=== PATIENT | male | born 1950 | race Caucasian/White ===

== ENCOUNTER → 2017-06-24 | Outpatient (CLI) | payer MEDICARE | LOC: LABPAT 16:29 | PROVIDERS: ATTEND Orthopaedic Surgery | DX: Z01.812 Encounter for preprocedural laboratory examination (principal); M16.11 Unilateral primary osteoarthritis, right hip | CPT/HCPCS: 87070 ==

== ENCOUNTER 2017-06-29 07:42 | Inpatient (IN) | payer MEDICARE ==
[2017-06-22 14:48] VITALS: BMI 34.0
--- NOTE | 2017-06-28 09:13 | HP ---
HISTORY AND PHYSICAL CHIEF COMPLAINT: Right hip pain. 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 He notes he walks with a limp. He is having groin and thigh pain. He has tried medications with only partial temporary relief. PAST MEDICAL HISTORY: Significant for arthritis, depression, hypercholesterolemia, and hypertension. PAST SURGICAL HISTORY: Significant for previous knee surgery. CURRENT MEDICATIONS: 1. Effexor. 2. Lopressor. 3. Zoloft. 4. Ativan. ALLERGIES: He denies drug allergies. FAMILY HISTORY: Significant for cancer and heart disease. SOCIAL HISTORY: Negative for current tobacco or alcohol use. REVIEW OF SYSTEMS: Sixteen-point review of systems otherwise reviewed and is noncontributory. PHYSICAL EXAMINATION: On examination, the patient is approximately 5 feet 10 inches, 230 pounds of endomorphic habitus. HEENT exam is nonfocal. Neck is supple. Passive motion of his right hip, flexion 80 degrees, external rotation with the hip flexed 50 degrees, internal rotation 0 degrees with pain. He has full extension. Clinically, he has 1 cm shortening of the right lower extremity compared to left. His distal neurovascular exam appears intact in the right lower extremity. X-rays to include AP and lateral views of the right hip obtained in the office show severe osteoarthrosis with [id number] changes. IMPRESSION: 1. Right hip severe osteoarthrosis. 2. Increased body mass index. RECOMMENDATIONS: I talked to the patient at length regarding his condition and treatment options. At this point, he is quite symptomatic because of pain related to his osteoarthrosis. At this point, he opts to proceed with right total hip arthroplasty. Risks and benefits were discussed at length in layman's terms. We will institute DVT prophylaxis postoperatively. MMODL / IJN: [id number] /
[~2017-06-29 07:42] MED LIST: ACETAMINOPHEN TAB 500 MG TAB PO ONE; DEXAMETHASONE SOD PHOSPHATE 10 MG/ML 1 ML VIAL IV ONE; MELOXICAM 7.5 MG TAB PO ONE; MIDAZOLAM 2 MG/2 ML VIAL IV PRN; ONDANSETRON 4 MG/2 ML VIAL IVP ONE; TRANEXAMIC ACID 1,000 MG in SODIUM CHLORIDE 0.9% 50 ML IVPB ONE; VANCOMYCIN 1,500 MG in SODIUM CHLORIDE 0.9% 250 ML IVPB ONE; ceFAZolin IN SWFI 2 GM/20 ML SYRINGE IVP ONE; fentaNYL (PF) 50 MCG/ML 2 ML AMP IV PRN
[2017-06-29] MEDS: LACTATED RINGERS 1,000 ML IV SCH ×2 (09:31→16:03)
[2017-06-29] MEDS ORDERED: SODIUM CHLORIDE 0.9% 100 ML BAG ONE (11:52)
[2017-06-29] MEDS ORDERED: PHENYLEPHRINE-0.9% NACL SYG 1 MG/10 ML SYRINGE ONE (11:52)
[2017-06-29] MEDS ORDERED: PROPOFOL 10 MG/ML 20 ML VIAL IV ONE (11:52)
[2017-06-29] MEDS ORDERED: diphenhydrAMINE 50 MG/ML 1 ML VIAL ONE (11:52)
[2017-06-29] MEDS ORDERED: fentaNYL (PF) 50 MCG/ML 2 ML AMP ONE (11:52)
[2017-06-29] MEDS ORDERED: LACTATED RINGERS 1,000 ML BAG IV ONE (11:52)
[2017-06-29] MEDS ORDERED: TRANEXAMIC ACID 1,000 MG/10 ML VIAL ONE (11:52)
[2017-06-29] MEDS ORDERED: MIDAZOLAM 2 MG/2 ML VIAL ONE (11:52)
[2017-06-29] MEDS ORDERED: HEPARIN SODIUM,PORCINE 10,000 UNIT/ML 1 ML VIAL ONE (11:52)
[2017-06-29] MEDS ORDERED: ceFAZolin 3,000 MG in SODIUM CHLORIDE 0.9% IRRIGATIO 3,000 ML IRRIGATION ONE (12:38)
[2017-06-29] MEDS ORDERED: LACTATED RINGERS 1,000 ML IV ONE (13:00)
[2017-06-29] MEDS ORDERED: MAGNESIUM HYDROXIDE 2,400 MG/10 ML CUP PO PRN (13:45)
[2017-06-29] MEDS ORDERED: HYDROmorphone 0.5 MG/0.5 ML SYRINGE IVP PRN ×2 (13:45)
[2017-06-29] MEDS ORDERED: NALOXONE 0.4 MG/ML 1 ML VIAL IV PRN (13:45)
[2017-06-29] MEDS ORDERED: ONDANSETRON 4 MG/2 ML VIAL IVP PRN (13:45)
[2017-06-29] MEDS ORDERED: ACETAMINOPHEN TAB 325 MG TAB PO PRN (13:45)
--- NOTE | 2017-06-29 14:13 | P.OP ---
Date of Procedure: 06/29/17 Preoperative Diagnosis: Severe right hip osteoarthrosis Postoperative Diagnosis: Same Procedure(s) Performed: Right total hip xvftpxenojjy-izgyj-lko-lateral approach Implants: Depuy Corail KLA size 14 collared femoral stem, 36 mm +12 coracoacromial femoral head, 58 mm acetabular shell with neutral polyethylene liner Anesthesia: spinal Surgeon: Yousuf Nolasco [employer] Cart Repairer #1: Wilfrid Esteban Estimated Blood Loss (ml): 180 Pathology: other (Femoral head) Condition: stable Disposition: PACU Indications for Procedure: The patient is a 67-year-old male who presents with progressive right hip pain secondary to osteoarthrosis despite conservative measures. A discussion of the risks and benefits of operative intervention versus continued conservative measures was made with patient. He opted to proceed with surgery. Operative risks to include infection, neurovascular injury, development of blood clots, possible fracture, possible ligamentous gaps he, possible instability and need for subsequent procedures was discussed. Informed consent was obtained. Operative Findings: As below Description of Procedure: The patient was brought to the operating room, and after induction of spinal anesthesia was placed in a lateral decubitus position. The bony prominences were appropriately padded. The right lower extremity was prepped and draped in normal fashion. Preoperative templating previously was performed estimate component positioning incises. A 12 cm incision was then made centered over the greater trochanter extending superiorly to level ASIS and distally in line with the femoral shaft. The skin and subcu tissues were divided sharply. Electrocautery was used for hemostasis. The fascia margareth and gluteus carter fascia was split in line with the skin incision. The muscle fibers were bluntly dissected ethmoid. A self-retaining retractor was placed. The anterior and posterior margins of the gluteus medius muscles identified in the anterior two thirds detached from the greater trochanter with electrocautery. The gluteus minimus tendon was identified and detached in a similar fashion. A wide capsulotomy was performed. The hip was gently dislocated. The femoral neck cut was then made approximately 1 1/2 cm above the level of the lesser trochanter at a 45 the shaft with a sagittal saw. The femoralead was then extracted. Attention was then paid towards preparing the acetabulum. Retractors were placed anterior and posteriorly. The remaining labral and capsular tissue was debrided sharply clearly defining the acetabular margins. I began reaming with a 53 millimeter reamer taking care to initially medialize, then reaming at 45 of abduction and 20 of anteversion. Sequential reaming was performed up to 57 mm. This was down to a bleeding bony surface. A 58 mm trial acetabular shell was inserted in the same orientation and was fully seated. There was good rim fit and stability. The trial component was removed. The final 58 millimeter [place] acetabular component was inserted in the same 45 abduction and 20 of anteversion and was fully seated. Again there was good rim fit and stability. Pulsatile lavage was utilized. A neutral polyethylene liner was gently impacted. Care was taken to avoid any soft tissue interposition. Attention was then paid towards preparing the proximal femur. A box chisel was used to open the metaphyseal region. A canal finder was used to find the femoral canal. Sequential broaching broaching was performed with the leg perpendicular to the floor in 15 of anteversion. I broached up to a size 14 broach. A calcar mill was used to fashion the medial calcar. A KLA neck along with a 36 mm +12 trial head was placed. The hip was gently relocated. It was taken through range of motion and felt to be stable in flexion and extension with internal and external rotation. I felt there was adequate christian of soft tissue tension. The hip was gently dislocated. The trial components were then removed. Pulsatile lavage was again utilized. The final size 14 KLA press fit femoral stem was inserted with the leg perpendicular to the floor in 15 of anteversion. This was fully seated and had good rotation stability. The 36 mm +12 cobalt chrome femoral head was gently impacted. Hip was gently reduced. Again it was taken through range of motion and felt to be stable in flexion and extension with internal and external rotation. Again I felt there was adequate christian of soft tissue tension. Pulsatile lavage was again utilized. The gluteus minimus and medius tendons reattached the greater trochanter with #2 Ethibond suture. Minimal drainage was noted this point therefore a drain was not placed. The fascia margareth and gluteus carter fascia was closed with #2 Ethibond suture. The subcutaneous tissues were reapproximated interrupted 2-0 Vicryl sutures. The skin was reapproximated with 3-0 subcuticular strata fix suture. Skin tape and adhesive was applied. A sterile dressing was applied. The patient was then awoken from sedation and transferred to recovery room in good condition. Blood loss was estimated at 180 mL. He received approximately 66 cc of Cell Saver. He also received 2 doses of IV TXA. Sponge and needle counts were correct in the case. No complications were incurred.
--- NOTE | 2017-06-29 14:25 | XR ---
EXAMINATION TYPE: XR Hip Limited RT DATE OF EXAM: 06/29/2017 COMPARISON: NONE HISTORY: Postop right hip placement TECHNIQUE: Single AP FINDINGS: Postsurgical changes are within the soft tissues. A right hip prosthesis and acetabular com ponent are present. No acute fractures are evident. IMPRESSION: 1. No acute fractures post right hip prosthesis placement.
[2017-06-29] MEDS: traMADol 50 MG TAB PO SCH ×2 (17:47→21:31)
[2017-06-29] MEDS ORDERED: LORazepam 1 MG TAB PO PRN (19:44)
[2017-06-29] MEDS ORDERED: VANCOMYCIN 1,500 MG in SODIUM CHLORIDE 0.9% 250 ML IVPB ONE (21:00)
[2017-06-29] MEDS: SENNOSIDES-DOCUSATE SODIUM 1 EACH TAB PO SCH (21:25)
[2017-06-29] MEDS: OXYMETAZOLINE 0.05% NASL SPRAY 1 SPRAY BOTTLE NASAL SCH (21:30)
[2017-06-29] MEDS: METOPROLOL TARTRATE 50 MG TAB PO SCH (21:30)
[2017-06-30] MEDS: HYDROcodone/APAP 7.5-325MG 1 EACH TAB PO PRN ×4 (05:32→23:32)
[2017-06-30 07:06] LABS: Basophils % (A) 0 %; Eosinophils % (A) 0 %; HGB 15.4 gm/dL (13.0-17.5); Lymphocytes % (A) 20 %; MCHC 34.2 g/dL (31.0-37.0); MCV 96.4 fL (80.0-100.0); Mean Platelet Volume 7.1; Monocytes # (A) 0.7 k/uL (0-1.0); Monocytes % (A) 7 %; Neutrophils # (A) 7.2 k/uL (1.3-7.7); Neutrophils % (A) 72 %; Platelet Count 170 k/uL (150-450); RBC 4.67 m/uL (4.30-5.90); RDW 12.7 % (11.5-15.5); WBC 10.1 k/uL (3.8-10.6)
[2017-06-30] MEDS: VENLAFAXINE HCL ER 75 MG CAP PO SCH (08:10)
[2017-06-30] MEDS: RIVAROXABAN 10 MG TAB PO SCH (08:10)
[2017-06-30] MEDS: SERTRALINE 100 MG TAB PO SCH (08:10)
[2017-06-30] MEDS: traMADol 50 MG TAB PO SCH ×4 (08:12→21:11)
[2017-06-30] MEDS ORDERED: SERTRALINE 50 MG TAB PO SCH (09:00)
[2017-06-30] MEDS ORDERED: METOPROLOL TARTRATE 50 MG TAB PO SCH (09:00)
[2017-06-30] MEDS: OXYMETAZOLINE 0.05% NASL SPRAY 1 SPRAY BOTTLE NASAL SCH ×3 (11:48→22:15)
--- NOTE | 2017-06-30 12:01 | P.PN ---
Subjective Progress Note Date: 06/30/17 Principal diagnosis: Status post right total arthroplasty Patient seen today resting in his hospital chair, he appears comfortable. He is having no acute pain at this time. He is ambulating with therapy. He denies any headaches, lightheadedness, chest pain shortness breath Objective - Vital Signs Vital signs: Vital Signs Temp 98.8 F 06/30/17 08:12 Pulse 94 06/30/17 08:12 Resp 16 06/30/17 01:19 BP 158/94 06/30/17 08:12 Pulse Ox 92 L 06/30/17 01:19 Intake & Output 06/29/17 06/30/17 06/30/17 18:59 06:59 18:59 Intake Total 1901 1100 Output Total 630 1025 300 Balance 1271 75 -300 Intake: IV 1901 Intake, IV Titration 100 Amount Lactated Ringers 1,000 ml 100 @ 50 mls/hr IV .Q20H CORI Rx#:[id number] Oral 1000 Output: Urine 450 1025 300 Uretheral (Tineo) 300 Estimated Blood Loss 180 Other: Voiding Method Indwelling Catheter Indwelling Catheter - Exam Right lower extremity: Incision is clean, dry, and intact. The prineo tape is in good condition. There is minimal soft tissue swelling and ecchymosis surrounding the medial and lateral aspects of the incision. Calf is soft, no tenderness with palpation. Plantar flexion, dorsiflexion, EHL, FHL are intact. Sensory exam to light touch throughout the extremity is intact, dorsal pedis pulses 2+. - Labs CBC & Chem 7: 06/30/17 06:30 Assessment and Plan Plan: Assessment: Postoperative day 1 status post right total hip arthroplasty Plan: Pain control, continue use of oral medication Continue her physical therapy GI and DVT prophylaxis, continue Xarelto 10 mg inpatient stay, we'll discharge home likely Eliquis 2.5 mg twice a day for 30 days Medical recommendations Hip precautions were discussed Encourage incentive spirometer Discharge planning: Patient likely be discharged home tomorrow Time with Patient: Less than 30
[2017-06-30] MEDS: METOPROLOL TARTRATE 50 MG TAB PO SCH (21:11)
[2017-06-30] MEDS: SENNOSIDES-DOCUSATE SODIUM 1 EACH TAB PO SCH (21:11)
--- NOTE | 2017-06-30 23:53 | P.CONS ---
History of Present Illness - Reason for Consult Consult date: 06/30/17 - Chief Complaint Status post hip arthroplasty. - History of Present Illness This is a history and consultation note on a 67-year-old white male essentially admitted for hip arthroplasty. The patient is seen postop day #1 doing quite well. He has an underlying history of hypertension andAlcoholism element. He states no previous history of delirium tremens. He is somewhat diaphoretic this morning but stable without tremor. Review of Systems Constitutional: Denies chills, Denies fever Eyes: denies blurred vision, denies pain Ears, nose, mouth and throat: Denies headache, Denies sore throat Respiratory: Denies cough Gastrointestinal: Denies abdominal pain, Denies diarrhea, Denies nausea, Denies vomiting Musculoskeletal: Denies myalgias Past Medical History Past Medical History: GERD/Reflux, Hypertension, Osteoarthritis (OA) Additional Past Medical History / Comment(s): carpal tunnel syndrome aman arms, arthritis knees and hands History of Any Multi-Drug Resistant Organisms: None Reported Additional Past Surgical History / Comment(s): pilonidal cyst, "varicose veins in testicles removed", cartilage in left knee repaired, polyp in nose removed Past Anesthesia/Blood Transfusion Reactions: Previous Problems w/ Anesthesia Additional Past Anesthesia/Blood Transfusion Reaction / Comm: "2 times coming out of anesthesia became violent". "woke up during during varicose vein surgery" Past Psychological History: Anxiety, Depression Smoking Status: Former smoker Past Alcohol Use History: Daily Additional Past Alcohol Use History / Comment(s): smoked 20 years quit 1 ppd quit 1981. 1 fifth/day Past Drug Use History: Marijuana Additional Drug Use History / Comment(s): 1/2 ounce per month. - Past Family History Mother Family Medical History: Cancer Additional Family Medical History / Comment(s): lung,pancreatic cancer Medications and Allergies Home Medications Medication Instructions Recorded Confirmed Type LORazepam [Ativan] 1 mg PO BID 06/22/17 06/29/17 History Metoprolol Tartrate [Lopressor] 50 mg PO HS 06/22/17 06/29/17 History Sertraline HCl [Zoloft] 100 mg PO DAILY 06/22/17 06/29/17 History Oxymetazoline 0.05% Nasl [place] 2 spray EA NOSTRIL BID PRN 06/28/17 06/29/17 History [Afrin 0.05% Nasal [place]] Venlafaxine HCl ER [Effexor Xr] 75 mg PO DAILY 06/28/17 06/29/17 History Allergies Allergy/AdvReac Type Severity Reaction Status Date / Time No Known Allergies Allergy Verified 06/29/17 15:51 Physical Exam Vitals: Vital Signs Temp Pulse Pulse Resp BP Pulse Ox 06/30/17 20:00 98.2 F 81 18 134/94 95 06/30/17 15:21 98 F 79 16 151/89 98 06/30/17 08:12 98.8 F 94 158/94 06/30/17 01:19 98.1 F 68 16 136/87 92 L Intake and Output 06/30/17 06/30/17 07/01/17 14:59 22:59 06:59 Intake Total 750 Output Total 300 375 Balance -300 375 Intake: Oral 750 Output: Urine 300 375 Uretheral (Tineo) 300 Other: Voiding Method Indwelling Catheter Toilet Urinal # Voids 1 - Constitutional General appearance: no acute distress - EENT Eyes: EOMI - Neck Neck: no lymphadenopathy - Respiratory Respiratory: bilateral: CTA - Cardiovascular Rhythm: regular Heart sounds: normal: S1, S2 Abnormal Heart Sounds: no S3 Gallop - Gastrointestinal General gastrointestinal: soft, no tenderness - Integumentary Integumentary: no rash - Psychiatric Psychiatric: A&O x's 3, appropriate affect Results CBC & Chem 7: 06/30/17 06:30 Assessment and Plan (1) Hypertension Current Visit: Yes Status: Acute Code(s): I10 - ESSENTIAL (PRIMARY) HYPERTENSION SNOMED Code(s): 54730635 (2) Anxiety Current Visit: Yes Status: Acute Code(s): F41.9 - ANXIETY DISORDER, UNSPECIFIED SNOMED Code(s): 11709964 (3) Depression Current Visit: Yes Status: Acute Code(s): F32.9 - MAJOR DEPRESSIVE DISORDER , SINGLE EPISODE, UNSPECIFIED SNOMED Code(s): 21871630 (4) Alcoholism Current Visit: Yes Status: Acute Code(s): F10.20 - ALCOHOL DEPENDENCE, UNCOMPLICATED SNOMED Code(s): 6987707 (5) Osteoarthritis of right hip Current Visit: Yes Status: Acute Code(s): M16.11 - UNILATERAL PRIMARY OSTEOARTHRITIS, RIGHT HIP SNOMED Code(s): 469425666191485 Plan: Reconcile home medications. Watch for any type of alcohol related issue. The patient seems to be stable at this time. Check CBC and CMP in the a.m. Start rehabilitation. Reconcile medications. We will continue follow closely during this hospitalization. I do appreciate the consultation. Time with Patient: Less than 30
[2017-07-01] MEDS: HYDROcodone/APAP 7.5-325MG 1 EACH TAB PO PRN (05:48)
[2017-07-01] MEDS: SERTRALINE 100 MG TAB PO SCH (08:04)
[2017-07-01] MEDS: RIVAROXABAN 10 MG TAB PO SCH (08:04)
[2017-07-01] MEDS: traMADol 50 MG TAB PO SCH ×2 (08:04→14:04)
[2017-07-01] MEDS: VENLAFAXINE HCL ER 75 MG CAP PO SCH (08:04)
[2017-07-01] MEDS: OXYMETAZOLINE 0.05% NASL SPRAY 1 SPRAY BOTTLE NASAL SCH (08:05)
[2017-07-01] MEDS ORDERED: HYDROmorphone 2 MG TAB PO PRN ×2 (11:10→11:12)
--- NOTE | 2017-07-01 12:01 | P.PN ---
Subjective Progress Note Date: 07/01/17 Principal diagnosis: Status post right total arthroplasty Patient seen today resting in his hospital chair, he appears comfortable. He is having no acute pain at this time. He is ambulating with therapy. He denies any headaches, lightheadedness, chest pain shortness breath Objective - Vital Signs Vital signs: Vital Signs Temp 98.9 F 07/01/17 07:00 Pulse 81 07/01/17 07:00 Resp 14 07/01/17 07:00 BP 147/93 07/01/17 07:00 Pulse Ox 95 07/01/17 07:00 Intake & Output 06/30/17 07/01/17 07/01/17 18:59 06:59 18:59 Intake Total 250 500 Output Total 675 Balance -425 500 Intake: Oral 250 500 Output: Urine 675 Uretheral (Tineo) 300 Other: Voiding Method Bedpan Toilet Urinal # Voids 1 2 - Exam Right lower extremity: Incision is clean, dry, and intact. The prineo tape is in good condition. There is minimal soft tissue swelling and ecchymosis surrounding the medial and lateral aspects of the incision. Calf is soft, no tenderness with palpation. Plantar flexion, dorsiflexion, EHL, FHL are intact. Sensory exam to light touch throughout the extremity is intact, dorsal pedis pulses 2+. - Labs CBC & Chem 7: 06/30/17 06:30 Assessment and Plan Plan: Assessment: Postoperative day #2 status post right total hip arthroplasty Plan: Pain control, continue use of oral medication Continue her physical therapy GI and DVT prophylaxis, continue Xarelto 10 mg inpatient stay, we'll discharge home likely Eliquis 2.5 mg twice a day for 30 days Medical recommendations Hip precautions were discussed Encourage incentive spirometer Discharge planning: Patient will be discharged home today Time with Patient: Less than 30
--- NOTE | 2017-07-01 12:04 | P.DS ---
Providers Date of admission: 06/29/17 07:42 Expected date of discharge: 07/01/17 Attending physician: Yousuf Nolasco Consults: 06/29/17 13:45 Consult Physician Routine Consulting Provider: Дмитрий Wolef Reason/Comments: medical management Do you want consulting provider notified?: Yes Primary care physician: Дмитрий Wolfe Hospital Course: Date of admission: 06/29/2017 Date of discharge: 07/01/2017 Admission diagnosis: Status post right total hip arthroplasty Discharge diagnosis: Same Attending physician: Dr. Nolasco Surgical procedures: Right total hip arthroplasty Brief history: Patient is a 67-year-old male with a history of progressive primary right hip osteoarthritis. At this point patient has failed conservative treatment measures and has opted to proceed with a elective right total hip arthroplasty. Hospital course: Details of patient's surgery can be found in operative report. Patient tolerated the procedure well and was subsequently transported to orthopedic floor. Patient's orthopeidc and medical care was provided daily. Patient had daily laboratory tests performed for evaluation of overall blood counts. Patient had daily physical therapy to include strengthening range of motion as well as education with walker ambulation. Patient was treated with Xarelto for their postoperative DVT prophylaxis during their inpatient stay. Patient was noted to have a relatively uneventful postoperative course. Patient reported satisfactory pain control with oral pain medications by postoperative day 0. Patient showed satisfactory progress with physical therapy. Patient moved steadily through the program and had no difficulty meeting the goals by postoperative day 2. Given patient's otherwise satisfactory course and having met physical therapy goals, plan is to discharge patient home on postoperative day 2. Discharge condition/disposition: Patient will be discharged home in stable condition. Discharge medications: Instructions are given on resumption of patient's normal daily medications per primary care recommendation, in addition patient will be prescribed [place] 5 mg/325 mg, Colace 100 mg, Eliquis 2.5mg. Discharge instructions: 1. Wound care and infection precautions, keep incision dry and covered while showering, no lotions, creams, moisturizers. No soaking, tubs, pools, hottubs. Do not scrub over the incision. 2. Weight-bear as tolerated] with walker / cane until follow-up. 3. Ice and elevate when necessary. Do not exceed 20 minutes per hour with ice pack. 4. Utilize compression sleeve until seen at first follow up appointment. 5. Visiting nursing care. 6. Home physical therapy. 7. Pain meds and anticoagulants per prescription. 8. Pain medication has potential to cause constipation. Increase oral fluid and fiber intake. Contact primary care provider if you have not had a bowel movement within 48 hours after discharge 9. No anti-inflammatory medication until discussed at first post operative visit, this including Motrin, Aleve, Mobic, Diclofenac. 10. Follow up in office at 2 weeks postop with Abelardo Esteban PA-C 11. Follow up with your primary care doctor 7-10 days after discharge. 12. Contact [facility] with any questions, . Procedures: Right total hip arthroplasty Patient Condition at Discharge: Good Plan - Discharge Summary Discharge Rx Participant: Yes New Discharge Prescriptions: New Apixaban [Eliquis] 2.5 mg PO BID #60 tab Docusate [Colace] 100 mg PO DAILY #30 capsule Hydrocodone/Acetaminophen [[place] 5-325] 1 each PO Q6HR PRN #40 tab PRN Reason: Pain No Action Sertraline HCl [Zoloft] 100 mg PO DAILY Metoprolol Tartrate [Lopressor] 50 mg PO HS LORazepam [Ativan] 1 mg PO BID Oxymetazoline 0.05% Nasl [place] [Afrin 0.05% Nasal [place]] 2 spray EA NOSTRIL BID PRN PRN Reason: Nasal Congestion Venlafaxine HCl ER [Effexor Xr] 75 mg PO DAILY Discharge Medication List LORazepam [Ativan] 1 mg PO BID 06/22/17 [History] Metoprolol Tartrate [Lopressor] 50 mg PO HS 06/22/17 [History] Sertraline HCl [Zoloft] 100 mg PO DAILY 06/22/17 [History] Oxymetazoline 0.05% Nasl [place] [Afrin 0.05% Nasal [place]] 2 spray EA NOSTRIL BID PRN 06/28/17 [History] Venlafaxine HCl ER [Effexor Xr] 75 mg PO DAILY 06/28/17 [History] Apixaban [Eliquis] 2.5 mg PO BID #60 tab 07/01/17 [Rx] Docusate [Colace] 100 mg PO DAILY #30 capsule 07/01/17 [Rx] Hydrocodone/Acetaminophen [[place] 5-325] 1 each PO Q6HR PRN #40 tab 07/01/17 [Rx] Follow up Appointment(s)/Referral(s): Дмитрий Wolfe MD [Primary Care Provider] - 07/09/17 2:20 pm [facility], [NON-STAFF] - Wilfrid Esteban PAC [PHYSICIAN CHARTER REPRESENTATIVE] - 07/14/17 3:30 pm Activity/Diet/Wound Care/Special Instructions: Orthopedic Discharge Instructions: 1. Wound care and infection precautions, keep incision dry and covered while showering, no lotions, creams, moisturizers. No soaking, pools, hot tubs. Do not scrub over incision. 2. Weight-bear as tolerated with walker / cane until follow-up. 3. Ice and elevate when necessary. Do not exceed 20 minutes per hour with ice pack. 4. Utilize compression sleeve until seen at first follow up appointment. 5. Visiting nursing care. 6. Home physical therapy. 7. Pain meds and anticoagulants per prescription. 8. Pain medication has potential to cause constipation. Increase oral fluid and fiber intake. Contact primary care provider if you have not had a bowel movement within 48 hours after discharge. 9. No anti-inflammatory medication until discussed at first post operative visit, this including Motrin, Aleve, Mobic, Diclofenac. 10. Follow up in office at 2 weeks postop with Abelardo Esteban PA-C 11. Follow up with your primary care doctor 7-10 days after discharge. 12. Contact [facility] with any questions, [phone]. 13. [facility] - [phone]- will deliver to bedside before discharge. Discharge Disposition: HOME WITH HOME HEALTH SERVICES
[2017-07-01 14:41] VITALS: BP 134/93; PULSE 94; RESP 16; TEMP 98.3
== END 2017-07-01 15:27 | disposition home health service (06) | DRG 470 ==
LOC: 2ORMAIN 07:42 → 3SUR 15:22
PROVIDERS: ADMIT Orthopaedic Surgery; ATTEND Orthopaedic Surgery
PROC: 30233N0 Transfusion of Autologous Red Blood Cells into Peripheral Vein, Percutaneous Approach (ICD-10-PCS; 2017-06-29)
PROC: 0SR902A Replacement of Right Hip Joint with Metal on Polyethylene Synthetic Substitute, Uncemented, Open Approach (ICD-10-PCS; principal; 2017-06-29 11:00)
DX: M16.11 Unilateral primary osteoarthritis, right hip (principal); E78.00 Pure hypercholesterolemia, unspecified; I10 Essential (primary) hypertension; M17.0 Bilateral primary osteoarthritis of knee; M19.042 Primary osteoarthritis, left hand; M19.041 Primary osteoarthritis, right hand; K21.9 Gastro-esophageal reflux disease without esophagitis; F41.9 Anxiety disorder, unspecified; F10.20 Alcohol dependence, uncomplicated; F32.9 Major depressive disorder, single episode, unspecified; Z87.891 Personal history of nicotine dependence; Z79.899 Other long term (current) drug therapy; Z80.0 Family history of malignant neoplasm of digestive organs
CPT/HCPCS: 36415; 73501; 85025; 86850; 86891; 86900; 86901; 88300

== ENCOUNTER 2018-11-07 21:51 | Emergency (ER) | payer MEDICARE ==
--- NOTE | 2018-11-08 03:56 | ED ---
General Adult HPI - General Source: patient, RN notes reviewed, old records reviewed Mode of arrival: ambulatory Limitations: no limitations <Yousuf Butcher - Last Filed: 11/08/18 03:57> <Gerry Oliveros - Last Filed: 11/08/18 04:39> - General Chief complaint: Psychiatric Symptoms Stated complaint: Mental HEalth Time Seen by Provider: 11/07/18 22:19 - History of Present Illness Initial comments: 68-year-old male patient presents to ED by [facility]. Reportedly patient was making threatening statements towards himself and towards his after a verbal altercation regards to possibly using a hand gun. At time of evaluation patient denies to answer any questions. Patient refused a physical exam. (Yousuf Butcher) - Related Data Home Medications Medication Instructions Recorded Confirmed LORazepam [Ativan] 1 mg PO BID 06/22/17 06/29/17 Metoprolol Tartrate [Lopressor] 50 mg PO HS 06/22/17 06/29/17 Sertraline HCl [Zoloft] 100 mg PO DAILY 06/22/17 06/29/17 Oxymetazoline 0.05% Nasl [place] 2 spray EA NOSTRIL BID PRN 06/28/17 06/29/17 [Afrin 0.05% Nasal [place]] Venlafaxine HCl ER [Effexor Xr] 75 mg PO DAILY 06/28/17 06/29/17 Previous Rx's Medication Instructions Recorded Apixaban [Eliquis] 2.5 mg PO BID #60 tab 07/01/17 Docusate [Colace] 100 mg PO DAILY #30 capsule 07/01/17 Hydrocodone/Acetaminophen [[place] 1 each PO Q6HR PRN #40 tab 07/01/17 5-325] Allergies Allergy/AdvReac Type Severity Reaction Status Date / Time No Known Allergies Allergy Verified 11/07/18 22:14 Review of Systems ROS Other: All systems not noted in ROS Statement are negative. <Yousuf Butcher - Last Filed: 11/08/18 03:57> ROS Other: All systems not noted in ROS Statement are negative. <Gerry Oliveros - Last Filed: 11/08/18 04:39> ROS Statement: Those systems with pertinent positive or pertinent negative responses have been documented in the HPI. Past Medical History Past Medical History: Coronary Artery Disease (CAD), GERD/Reflux, Hypertension, Osteoarthritis (OA) Additional Past Medical History / Comment(s): carpal tunnel syndrome aman arms, arthritis knees and hands History of Any Multi-Drug Resistant Organisms: None Reported Past Surgical History: Coronary Bypass/CABG, Joint Replacement, Orthopedic Surgery Additional Past Surgical History / Comment(s): pilonidal cyst, "varicose veins in testicles removed", cartilage in left knee repaired, polyp in nose removed Past Anesthesia/Blood Transfusion Reactions: Previous Problems w/ Anesthesia Additional Past Anesthesia/Blood Transfusion Reaction / Comment(s): "2 times coming out of anesthesia became violent". "woke up during during varicose vein surgery" Past Psychological History: Anxiety, Depression Smoking Status: Current some day smoker Past Alcohol Use History: Daily Past Drug Use History: Marijuana - Past Family History Mother Family Medical History: Cancer Additional Family Medical History / Comment(s): lung,pancreatic cancer <Yousuf Butcher - Last Filed: 11/08/18 03:57> General Exam Limitations: no limitations <Yousuf Butcher - Last Filed: 11/08/18 03:57> Course Vital Signs 11/07/18 11/08/18 11/08/18 21:57 00:43 04:04 Temperature 97.9 F 98.5 F Pulse Rate 95 79 Respiratory 18 16 17 Rate Blood Pressure 146/99 145/95 O2 Sat by Pulse 99 96 Oximetry Medical Decision Making <Yousuf Butcher - Last Filed: 11/08/18 03:57> - Medical Decision Making 68-year-old male patient is to ED after reportedly making threatening statements or using a hand and for violence towards himself from possible towards his . Patient is answer any questions during my history taking. Patient did deny any physical complaints at this time. Patient refused to allow me to perform a physical exam. Patient also declined any laboratory investigations to be drawn. Patient was evaluated by EPS. Pending recommendation. (Yousuf Butcher) Disposition <Yousuf Butcher - Last Filed: 11/08/18 03:57> Is patient prescribed a controlled substance at d/c from ED?: No <Gerry Oliveros - Last Filed: 11/08/18 04:39> Clinical Impression: Mood disorder Disposition: HOME SELF-CARE Condition: Good Instructions (If sedation given, give patient instructions): Mood Disorders (ED) Referrals: Jann Betancur MD [Primary Care Provider] - 1-2 days
[2018-11-08] MEDS ORDERED: LORazepam 2 MG/ML INJ IV PRN ×3 (03:57)
[2018-11-08 04:04] VITALS: RESP 17
[2018-11-08 04:46] VITALS: BP 105/75; PULSE 86; TEMP 97.5
== END 2018-11-08 04:51 | disposition home or self-care (01) ==
LOC: EC 21:51
DX: F39 Unspecified mood [affective] disorder (principal); I25.10 Atherosclerotic heart disease of native coronary artery without angina pectoris; I10 Essential (primary) hypertension; F41.9 Anxiety disorder, unspecified; F32.9 Major depressive disorder, single episode, unspecified; F17.200 Nicotine dependence, unspecified, uncomplicated; Z79.899 Other long term (current) drug therapy; Z95.1 Presence of aortocoronary bypass graft
CPT/HCPCS: 82075; 99285

== ENCOUNTER → 2018-11-25 | Outpatient (CLI) | payer MEDICARE ==
--- NOTE | 2018-11-25 09:57 | XR ---
EXAMINATION TYPE: XR chest 2V DATE OF EXAM: 11/25/2018 COMPARISON: NONE HISTORY: MRI clearance. History of open heart surgery. TECHNIQUE: Frontal and lateral views of the chest are obtained. FINDINGS: Overlying sternal wires and mediastinal clips are seen. There is metallic cardiac closure d evice along the superior posterior aspect of the heart. This should be correlated for MRI safety prio r to attempted scanning. No epicardial pacer wires are present. There is chronic parenchymal change without suspicious focal air space opacity, pleural effusion, or pneumothorax seen. The cardiac silh ouette size is upper limits of normal. Multilevel spurring in the thoracic spine is present. IMPRESSION: As above.
== END ==
LOC: RADXRMAIN 09:34
PROVIDERS: ATTEND Orthopaedic Surgery Orthopaedic Surgery of the Spine
DX: M46.04 Spinal enthesopathy, thoracic region (principal)
CPT/HCPCS: 71046

== ENCOUNTER → 2019-01-02 | Outpatient (CLI) | payer MEDICARE ==
--- NOTE | 2019-01-02 16:21 | NM ---
EXAMINATION TYPE: NM bone scan whole body DATE OF EXAM: 01/02/2019 COMPARISON: NONE HISTORY: Neck pain cervicalgia Delayed whole-body scanning was performed following the injection of 24.6 mCi Tc 99m MDP. Images acq uired 3 hours post injection. FINDINGS: There is increased radiotracer accumulation within the sternum and within the bilateral shoulders. In creased uptake is within the bilateral knees. There are some scattered areas of uptake within the elb ows, wrists and ankles. Within the cervical spine there is mild uptake in the lower cervical spine which could be degenerativ e in nature. Some focal radiotracer is within the mandible slightly left of midline. Correlate for periodontal dis ease. There is some uptake over the greater trochanter of the right hip. Correlate for some bursitis change s IMPRESSION: 1. Multiple degenerative changes scattered throughout appendicular skeleton at joint spaces. 2. Mild uptake within the cervical spine can be compatible some degenerative change.
== END | disposition home or self-care (01) ==
LOC: RADNMMAIN 09:50
PROVIDERS: ATTEND Physical Medicine & Rehabilitation
DX: M19.90 Unspecified osteoarthritis, unspecified site (principal)
CPT/HCPCS: 78306; A9503

== ENCOUNTER → 2022-02-02 | Outpatient (CLI) | payer MEDICARE, OTHER ==
--- NOTE | 2022-02-02 16:34 | CT ---
EXAMINATION TYPE: CT right knee - [facility] Protocol DATE OF EXAM: 02/02/2022 COMPARISON: Radiograph 08/02/2020 and 06/17/2020 HISTORY: 72-year-old male Unilateral primary osteoarthritis CT DLP: 1500 mGycm. Automated exposure control for dose reduction was used. TECHNIQUE: CT scanning for surgical planning purposes right knee with additional imaging of the pelvi s and ankles. FINDINGS: The patient is status post right hip total arthroplasty and interval left total knee ureteroplasty. There is tricompartmental degenerative change in the right knee, end-stage along the medial compartme nt with some genu varies deformity. In the pelvis, sigmoid diverticulosis is noted. Prostate gland measuring 4.5 cm wide. Moderate degene rative change left hip. Moderate knee joint effusion with a 1.1 cm loose body lateral aspect of the right suprapatellar pouch . Degenerative change at the right tibiotalar joint. IMPRESSION: 1. Imaging of the right knee for surgical planning purposes. 2. Previous right total hip arthroplasty and left total knee arthroplasty. 3. Additional moderate left hip OA and moderate to severe right ankle joint OA.
== END | disposition home or self-care (01) ==
LOC: RADCTMAIN 15:49
PROVIDERS: ATTEND Orthopaedic Surgery
DX: M17.11 Unilateral primary osteoarthritis, right knee (principal); M16.12 Unilateral primary osteoarthritis, left hip; Z96.641 Presence of right artificial hip joint; Z96.653 Presence of artificial knee joint, bilateral

== ENCOUNTER 2022-08-11 22:13 | Emergency (ER) | payer MEDICARE, OTHER ==
[2022-08-11 22:32] VITALS: BP 148/97; PULSE 75; RESP 18; TEMP 98.2
[2022-08-11] MEDS ORDERED: AMOXIC-POT CLAV 875MG STARTER PACK 2 TAB BTL PO STA (23:33)
--- NOTE | 2022-08-11 23:35 | ED ---
ENT HPI - General Chief complaint: Dental/Oral Stated complaint: Tooth infection, Facial swelling Time Seen by Provider: 08/11/22 22:54 Source: patient Mode of arrival: ambulatory - History of Present Illness Initial comments: 72-year-old male presents to the ED with a chief complaint of dental pain. She states over the last 2 days has had pain of the right lower molar. Patient seen at an urgent care for this prior to arrival. Patient states that he was prescribed antibiotics which were sent to [facility] however states that [facility] was closed today and cannot receive his antibiotics therefore came to the ED. He notes that he has follow-up with his dentist in the next few days. He should also notes a rash over the right side of his face that has been ongoing. Denies chest pain or shortness of breath. No other complaints. - Related Data Home Medications Medication Instructions Recorded Confirmed LORazepam [Ativan] 1 mg PO BID 06/22/17 06/29/17 Metoprolol Tartrate [Lopressor] 50 mg PO HS 06/22/17 06/29/17 Sertraline HCl [Zoloft] 100 mg PO DAILY 06/22/17 06/29/17 Oxymetazoline 0.05% Nasl [place] 2 spray EA NOSTRIL BID PRN 06/28/17 06/29/17 [Afrin 0.05% Nasal [place]] Venlafaxine HCl ER [Effexor Xr] 75 mg PO DAILY 06/28/17 06/29/17 Previous Rx's Medication Instructions Recorded Apixaban [Eliquis] 2.5 mg PO BID #60 tab 07/01/17 Docusate [Colace] 100 mg PO DAILY #30 capsule 07/01/17 Hydrocodone/Acetaminophen [[place] 1 each PO Q6HR PRN #40 tab 07/01/17 5-325] Allergies Allergy/AdvReac Type Severity Reaction Status Date / Time No Known Allergies Allergy Verified 08/11/22 22:32 Review of Systems ROS Statement: Those systems with pertinent positive or pertinent negative responses have been documented in the HPI. ROS Other: All systems not noted in ROS Statement are negative. Past Medical History Past Medical History: Coronary Artery Disease (CAD), GERD/Reflux, Hypertension, Osteoarthritis (OA) Additional Past Medical History / Comment(s): carpal tunnel syndrome aman arms, arthritis knees and hands History of Any Multi-Drug Resistant Organisms: None Reported Past Surgical History: Coronary Bypass/CABG, Joint Replacement, Orthopedic Surgery Additional Past Surgical History / Comment(s): pilonidal cyst, "varicose veins in testicles removed", cartilage in left knee repaired, polyp in nose removed Past Anesthesia/Blood Transfusion Reactions: Previous Problems w/ Anesthesia Additional Past Anesthesia/Blood Transfusion Reaction / Comment(s): "2 times coming out of anesthesia became violent". "woke up during during varicose vein surgery" Past Psychological History: Anxiety, Depression Smoking Status: Never smoker Past Alcohol Use History: Daily Past Drug Use History: Marijuana - Past Family History Mother Family Medical History: Cancer Additional Family Medical History / Comment(s): lung,pancreatic cancer General Exam Limitations: no limitations General appearance: alert, in no apparent distress Head exam: Present: atraumatic, normocephalic, other (Honey crusted lesions over the right side of the face) ENT exam: Present: mucous membranes moist, other (Poor dentition. Cavity of the right first molar without surrounding abscess. No significant facial swelling.) Respiratory exam: Present: normal lung sounds bilaterally Cardiovascular Exam: Present: regular rate, systolic murmur (2/6 systolic murmur best heard over the RUSB) GI/Abdominal exam: Present: soft Neurological exam: Present: alert, oriented X3 Psychiatric exam: Present: normal affect, normal mood Skin exam: Present: warm, dry Course Vital Signs 08/11/22 22:27 Temperature 98.2 F Pulse Rate 75 Respiratory 18 Rate Blood Pressure 148/97 O2 Sat by Pulse 96 Oximetry Medical Decision Making - Medical Decision Making Was pt. sent in by a medical professional or institution (ALTHEA Lobo, SENIOR CONTROLS ANALYST, urgent care, hospital, or retirement...) When possible be specific @ -No Did you speak to anyone other than the patient for history (EMS, parent, family, police, friend...)? What history was obtained from this source @ -No Did you review nursing and triage notes (agree or disagree)? Why? @ -I reviewed and agree with nursing and triage notes Were old charts reviewed (outside hosp., previous admission, EMS record, old EKG, old radiological studies, urgent care reports/EKG's, retirement records)? Report findings @ -No old charts were reviewed Differential Diagnosis (chest pain, altered mental status, abdominal pain women, abdominal pain men, vaginal bleeding, weakness, fever, dyspnea, syncope, headache, dizziness, GI bleed, back pain, seizure, CVA, palpatations, mental health, musculoskeletal)? @ -ANUG, Julien angina, cellulitis, apical/periapical abscess. This is not meant to be an all-inclusive list EKG interpreted by me (3pts min.). @ -None X-rays interpreted by me (1pt min.). @ -None done CT interpreted by me (1pt min.). @ -None done U/S interpreted by me (1pt. min.). @ -None done What testing was considered but not performed or refused? (CT, X-rays, U/S, labs)? Why? @ -None What meds were considered but not given or refused? Why? @ -None Did you discuss the management of the patient with other professionals (professionals i.e. , PA, SENIOR CONTROLS ANALYST, lab, RT, psych nurse, social sciences instructor, performance improvement specialist, teacher, sheriff's officer, case folder)? Give summary @ -No Was smoking cessation discussed for >3mins.? @ -No Was critical care preformed (if so, how long)? @ -No Were there social determinants of health that impacted care today? How? (Homelessness, low income, unemployed, alcoholism, drug addiction, transportation, low edu. Level, literacy, decrease access to med. care, detention, rehab)? @ -No Was there de-escalation of care discussed even if they declined (Discuss DNR or withdrawal of care, Hospice)? DNR status @ -No What co-morbidities impacted this encounter? (DM, HTN, Smoking, COPD, CAD, Cancer, CVA, ARF, Chemo, Hep., AIDS, mental health diagnosis, sleep apnea, morbid obesity)? @ -None Was patient admitted / discharged? Hospital course, mention meds given and route, prescriptions, significant lab abnormalities, going to OR and other pertinent info. @ -Discharge. Patient provided starter pack of Augmentin here. Advised to continue prescriptions as prescribed from his previous visit at the urgent care and follow-up with his dentist as scheduled. Patient did have some honey crusted lesions on his face consistent with impetigo. Provided prescription for mupirocin. Discharged in stable condition. Discussed return precautions with patient who verbalizes agreement. Undiagnosed new problem with uncertain prognosis? @ -No Drug Therapy requiring intensive monitoring for toxicity (Heparin, Nitro, Insulin, Cardizem)? @ -No Were any procedures done? @ -No Diagnosis/symptom? @ -Dental pain, Impetigo Acute, or Chronic, or Acute on Chronic? @ -Acute Uncomplicated (without systemic symptoms) or Complicated (systemic symptoms)? @ -Uncomplicated Side effects of treatment? @ -No Exacerbation, Progression, or Severe Exacerbation? @ -No Poses a threat to life or bodily function? How? (Chest pain, [place], SD, pneumonia, PE, COPD, DKA, ARF, appy, cholecystitis, CVA, Diverticulitis, Homicidal, Suicidal, threat to staff... and all critical care pts) @ -No Disposition Clinical Impression: Pain, dental, Impetigo Disposition: HOME SELF-CARE Condition: Good Instructions (If sedation given, give patient instructions): Impetigo (ED), Toothache (ED) Additional Instructions: Please return to the Emergency Department if symptoms worsen or any other concerns. Is patient prescribed a controlled substance at d/c from ED?: No Referrals: Jann Betancur MD [Primary Care Provider] - 1-2 days Time of Disposition: 23:42
== END 2022-08-11 23:59 | disposition home or self-care (01) ==
LOC: EC 22:13
DX: K08.89 Other specified disorders of teeth and supporting structures (principal); L01.00 Impetigo, unspecified; J44.9 Chronic obstructive pulmonary disease, unspecified; I10 Essential (primary) hypertension; F41.9 Anxiety disorder, unspecified; F32.A Depression, unspecified; F12.90 Cannabis use, unspecified, uncomplicated; Z79.899 Other long term (current) drug therapy
CPT/HCPCS: 99283

== ENCOUNTER → 2023-04-22 | Outpatient (CLI) | payer MEDICARE, OTHER ==
--- NOTE | 2023-04-22 12:52 | US ---
EXAMINATION TYPE: US kidneys/renal and bladder DATE OF EXAM: 04/22/2023 COMPARISON: NONE CLINICAL INDICATION: Male, 73 years old with history of R31.1 BENIGN ESSENTIAL MICROSCOPIC HEMATURIA; Pt states blood in urine seen on urine test EXAM MEASUREMENTS: Right Kidney: 10.4 x 5.5 5.1 cm Left Kidney: 11.6 x 5.5 x 4.8 cm Right Kidney: No evidence of hydro, possible mid pole calculus measuring 0.6 cm Left Kidney: Benign midpole central cyst measuring 2.1 cm. There is mild hydronephrosis. Bladder: wnl Bilateral Jets seen: Yes Incidental finding AAA at distal portion of aorta= 3.2 x 2.7 x 3.0 cm IMPRESSION: 1. Mild left-sided hydronephrosis. 2. A 6 mm nonobstructive right renal calculus. 3. 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
== END | disposition home or self-care (01) ==
LOC: RADUSWWP 10:33
PROVIDERS: ATTEND Urology
DX: N13.2 Hydronephrosis with renal and ureteral calculous obstruction (principal); R31.1 Benign essential microscopic hematuria
CPT/HCPCS: 76770

== ENCOUNTER → 2023-05-12 | Outpatient (CLI) | payer MEDICARE, OTHER ==
--- NOTE | 2023-05-12 10:55 | CT ---
EXAMINATION TYPE: CT abdomen pelvis wo con DATE OF EXAM: 05/12/2023 COMPARISON: Ultrasound 04/22/2023 HISTORY: Abn US CT DLP: 839.8 mGycm Examination of the solid and hollow viscera is limited given the lack of contrast. FINDINGS: LUNG BASES: No evidence for nodule. No evidence for infiltrate. LIVER/GB: The gallbladder is unremarkable. No space-occupying hepatic lesion. PANCREAS: No pancreatic mass identified. No inflammatory process seen. SPLEEN: No evidence for splenomegaly. No intrasplenic lesions seen. ADRENALS: No adrenal nodules identified. No evidence for thickening. KIDNEYS: Nonobstructing 6 mm calculus lower pole right kidney. No left-sided calculi are seen. Nonspe cific Hypoattenuating exophytic lesion mid pole left kidney posteriorly. Mild fullness left renal pel vis could be related to acquired or congenital left UPJ obstruction Mild in degree. Evaluation of the urinary bladder region is limited by extensive streak artifact from right hip prosthesis. Multiple p robable pelvic phleboliths. BOWEL: Appendix has a normal appearance. No evidence of bowel obstruction. No inflammatory process. Lymph nodes: No evidence for adenopathy greater than 1 cm. Abdominal aorta: Atheromatous changes seen. No evidence for aneurysm. Genital organs: No significant abnormality. Other: No significant abnormality. IMPRESSION: Nonobstructing 6 mm calculus lower pole right kidney. No left-sided calculi are seen. Nonspecific Hyp oattenuating exophytic lesion mid pole left kidney posteriorly. Mild fullness left renal pelvis could be related to acquired or congenital left UPJ obstruction Mild in degree.
== END | disposition home or self-care (01) ==
LOC: RADCTMAIN 10:11
PROVIDERS: ATTEND Urology
DX: N20.0 Calculus of kidney (principal)
CPT/HCPCS: 74176

== ENCOUNTER 2023-06-08 17:27 | Emergency (ER) | payer MEDICARE, OTHER ==
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
[2023-06-08 18:49] VITALS: RESP 16; TEMP 97.9
[2023-06-08 18:58] LABS: Basophils # (A) 0.1 k/uL (0-0.2); Basophils % (A) 1 %; Eosinophils # (A) 0.1 k/uL (0-0.7); Eosinophils % (A) 1 %; HGB 17.2 gm/dL (13.0-17.5); Lymphocytes # (A) 1.9 k/uL (1.0-4.8); Lymphocytes % (A) 24 %; MCH 31.5 pg (25.0-35.0); MCHC 32.4 g/dL (31.0-37.0); MCV 97.1 fL (80.0-100.0); Mean Platelet Volume 8.7; Monocytes # (A) 0.5 k/uL (0-1.0); Monocytes % (A) 6 %; Neutrophils # (A) 5.3 k/uL (1.3-7.7); Neutrophils % (A) 66 %; Platelet Count 265 k/uL (150-450); RBC 5.45 m/uL (4.30-5.90); RDW 12.9 % (11.5-15.5)
--- NOTE | 2023-06-08 19:07 | XR ---
EXAMINATION TYPE: XR ribs bilat w pa chest xray DATE OF EXAM: 06/08/2023 7:00 PM CLINICAL INDICATION:Male, 73 years old with history of chest pain; [facility] COMPARISON: Chest radiograph 11/25/2018. TECHNIQUE: Frontal and oblique views of the bilateral ribs with frontal chest radiograph. FINDINGS: The ribs have a normal appearance. No evidence of fracture. Overall, the lungs are clear. The cardiac silhouette is normal in size. The remaining osseous structures are intact. Median de luna otomy wires are identified and intact. Postsurgical clips along the left alida. Osteoarthritic changes involving the bilateral glenohumeral joints. Degenerative changes of the visualized thoracic spine. IMPRESSION: No acute osseous pathology.
[2023-06-08 19:09] LABS: ALT 35 U/L (4-49); AST 34 U/L (17-59); African American GFR (CKD) >90 (>60 ml/min/1.73 sqM); Albumin 4.4 g/dL (3.5-5.0); Alkaline Phosphatase 131 U/L (38-126); Anion Gap 9 mmol/L; Blood Urea Nitrogen 13 mg/dL (9-20); Calcium 9.8 mg/dL (8.4-10.2); Carbon Dioxide 23 mmol/L (22-30); Chloride 105 mmol/L (98-107); Glucose 101 mg/dL (74-99); Lipase 84 U/L (23-300); Non-African American GFR(CKD) >90 (>60 ml/min/1.73 sqM); Potassium 4.1 mmol/L (3.5-5.1); Sodium 137 mmol/L (137-145); Total Bilirubin 0.8 mg/dL (0.2-1.3); Total Protein 7.3 g/dL (6.3-8.2)
[2023-06-08 20:41] VITALS: BP 128/89; PULSE 91
== END 2023-06-08 20:10 | disposition home or self-care (01) ==
LOC: EC 17:27
DX: S20.211A Contusion of right front wall of thorax, initial encounter (principal); S40.011A Contusion of right shoulder, initial encounter; S80.01XA Contusion of right knee, initial encounter; Y35.819A Legal intervention involving manhandling, unspecified person injured, initial encounter
CPT/HCPCS: 36415; 71111; 80053; 83690; 84484; 85025; 93005; 99285

== ENCOUNTER 2023-06-11 08:03 | Emergency (ER) | payer MEDICARE, OTHER ==
[2023-06-11] MEDS: SODIUM CHLORIDE 0.9% 1,000 ML IV STA (08:28)
[2023-06-11] MEDS: SODIUM CHLORIDE 0.9% 500 ML 500 ML IV STA (08:28)
--- NOTE | 2023-06-11 08:30 | ED ---
General Adult HPI - General Chief complaint: Weakness Stated complaint: AMS Time Seen by Provider: 06/11/23 08:10 Source: patient, EMS, RN notes reviewed, old records reviewed Mode of arrival: EMS Limitations: no limitations - History of Present Illness Initial comments: This is a 73-year-old male who presents to the emergency department stating that he is dehydrated. Patient states he had diarrhea for over a week and yesterday was the first day that he was able to eat solid food he got up today and he was lightheaded and thought he might fall down because he was so weak so he called the ambulance to come in and get some fluid. Patient states this has happened multiple times in the past and every time he comes in to get fluid he feels much better. Patient denies any chest pain difficulty breathing shortness of breath. Patient states he does have a history of open heart surgery as well as high blood pressure. Patient denies any fever chills or cough. Patient denies any abdominal pain patient denies nausea vomiting diarrhea. - Related Data Home Medications Medication Instructions Recorded Confirmed Aspirin EC [Ecotrin Low Dose] 81 mg PO DAILY@139906/11/23 06/11/23 Cholecalciferol [Vitamin D3 (25 25 mcg PO DAILY@139906/11/23 06/11/23 Mcg = 1000 Iu)] Metoprolol Succinate (ER) [Toprol 50 mg PO DAILY@139906/11/23 06/11/23 Xl] Multivitamins, Thera [Multivitamin 1 tab PO DAILY@139906/11/23 06/11/23 (formulary)] Phytonadione [Vitamin K] 5 mg PO DAILY@139906/11/23 06/11/23 Venlafaxine HCl ER [Effexor Xr] 150 mg PO DAILY@139906/11/23 06/11/23 Allergies Allergy/AdvReac Type Severity Reaction Status Date / Time No Known Allergies Allergy Verified 06/11/23 08:42 Review of Systems ROS Statement: Those systems with pertinent positive or pertinent negative responses have been documented in the HPI. ROS Other: All systems not noted in ROS Statement are negative. Past Medical History Past Medical History: Coronary Artery Disease (CAD), GERD/Reflux, Hypertension, Osteoarthritis (OA) Additional Past Medical History / Comment(s): carpal tunnel syndrome aman arms, arthritis knees and hands History of Any Multi-Drug Resistant Organisms: None Reported Past Surgical History: Coronary Bypass/CABG, Joint Replacement, Orthopedic Surgery Additional Past Surgical History / Comment(s): pilonidal cyst, "varicose veins in testicles removed", cartilage in left knee repaired, polyp in nose removed Past Anesthesia/Blood Transfusion Reactions: Previous Problems w/ Anesthesia Additional Past Anesthesia/Blood Transfusion Reaction / Comment(s): "2 times coming out of anesthesia became violent". "woke up during during varicose vein surgery" Past Psychological History: Anxiety, Depression Smoking Status: Never smoker Past Alcohol Use History: Daily Past Drug Use History: Marijuana - Past Family History Mother Family Medical History: Cancer Additional Family Medical History / Comment(s): lung,pancreatic cancer General Exam - General Exam Comments Initial Comments: GENERAL: Patient is well-developed and well-nourished. Patient is nontoxic and well- hydrated and is in no acute distress. ENT: Neck is soft and supple. No significant lymphadenopathy is noted. Oropharynx is clear. Dry mucous membranes. Neck has full range of motion without eliciting any pain. EYES: The sclera were anicteric and conjunctiva were pink and moist. Extraocular movements were intact and pupils were equal round and reactive to light. Eyeli ds were unremarkable. PULMONARY: Unlabored respirations. Good breath sounds bilaterally. No audible rales rhonchi or wheezing was noted. CARDIOVASCULAR: Patient is a regular rate and rhythm ABDOMEN: Soft and nontender with normal bowel sounds. SKIN: Skin is clear with no lesions or rashes and otherwise unremarkable. NEUROLOGIC: Patient is alert and oriented x3. Cranial nerves II through XII are grossly intact. Motor and sensory are also intact. Normal speech, volume and content. Symmetrical smile. MUSCULOSKELETAL: Normal extremities with adequate strength and full range of motion. LYMPHATICS: No significant lymphadenopathy is noted PSYCHIATRIC: Normal psychiatric evaluation. Limitations: no limitations Course Vital Signs 06/11/23 08:07 Temperature 97.7 F Pulse Rate 82 Respiratory 20 Rate Blood Pressure 148/92 O2 Sat by Pulse 97 Oximetry Medical Decision Making - Medical Decision Making Patient is EKG is interpreted by myself. Patient's EKG shows a sinus bradycardia 55 bpm parables 150 QRS is 102 QT interval is 452 QTc is 442. Patient's EKG shows no ST segment ovation or depression. Was pt. sent in by a medical professional or institution (Dr., PA, MANUFACTURING PROCESS TECHNICIAN, urgent care, hospital, or snf...) When possible be specific @ -No Did you speak to anyone other than the patient for history (EMS, parent, family, police, friend...)? What history was obtained from this source @ -No Did you review nursing and triage notes (agree or disagree)? Why? @ -I reviewed and agree with nursing and triage notes Were old charts reviewed (outside hosp., previous admission, EMS record, old EKG, old radiological studies, urgent care reports/EKG's, snf records)? Report findings @ -No old charts were reviewed Differential Diagnosis (chest pain, altered mental status, abdominal pain women, abdominal pain men, vaginal bleeding, weakness, fever, dyspnea, syncope, headache, dizziness, GI bleed, back pain, seizure, CVA, palpatations, mental health, musculoskeletal)? @ -Differential Dizziness: Benign paroxysmal positional Vertigo, Menieres disease, otitis media, acoustic neuroma, vertebrobasilar insufficiency, cerebellar stroke, encephalitis, hypovolemic, arrhythmia, coronary artery syndrome, anemia, this is not meant to be an all-inclusive list EKG interpreted by me (3pts min.). @ -As above X-rays interpreted by me (1pt min.). @ -None done CT interpreted by me (1pt min.). @ -None done U/S interpreted by me (1pt. min.). @ -None done What testing was considered but not performed or refused? (CT, X-rays, U/S, labs)? Why? @ -None What meds were considered but not given or refused? Why? @ -None Did you discuss the management of the patient with other professionals (professionals i.e. , PA, MANUFACTURING PROCESS TECHNICIAN, lab, RT, psych nurse, social sciences professor, motorized squad sergeant, teacher, building drafting officer, patient case coordinator)? Give summary @ -No Was smoking cessation discussed for >3mins.? @ -No Was critical care preformed (if so, how long)? @ -No Were there social determinants of health that impacted care today? How? (Homelessness, low income, unemployed, alcoholism, drug addiction, transportation, low edu. Level, literacy, decrease access to med. care, group home, rehab)? @ -No Was there de-escalation of care discussed even if they declined (Discuss DNR or withdrawal of care, Hospice)? DNR status @ -No What co-morbidities impacted this encounter? (DM, HTN, Smoking, COPD, CAD, Cancer, CVA, ARF, Chemo, Hep., AIDS, mental health diagnosis, sleep apnea, morbid obesity)? @ -None Was patient admitted / discharged? Hospital course, mention meds given and route, prescriptions, significant lab abnormalities, going to OR and other pertinent info. @ -Patient was given a liter half-normal saline. Labs came back within normal range I went back and reevaluated the patient he stated he was feeling considerably better and wanted be discharged home. Undiagnosed new problem with uncertain prognosis? @ -No Drug Therapy requiring intensive monitoring for toxicity (Heparin, Nitro, Insulin, Cardizem)? @ -No Were any procedures done? @ -No Diagnosis/symptom? @ -Lightheaded Acute, or Chronic, or Acute on Chronic? @ -Acute Uncomplicated (without systemic symptoms) or Complicated (systemic symptoms)? @ -Complicated Side effects of treatment? @ -No Exacerbation, Progression, or Severe Exacerbation? @ -No Poses a threat to life or bodily function? How? (Chest pain, [place], [place], pneumonia, PE, COPD, DKA, ARF, appy, cholecystitis, CVA, Diverticulitis, Homicidal, Suicidal, threat to staff... and all critical care pts) @ -No Diagnosis/symptom? @ -Dehydration Acute, or Chronic, or Acute on Chronic? @ -Acute Uncomplicated (without systemic symptoms) or Complicated (systemic symptoms)? @ -Uncomplicated Side effects of treatment? @ -None Exacerbation, Progression, or Severe Exacerbation] @ -No Poses a threat to life or bodily function? @ -No - Lab Data Result diagrams: 06/11/23 09:00 06/11/23 08:25 Lab Results 06/11/23 06/11/23 06/11/23 Range/Units 08:25 08:25 08:25 WBC (3.8-10.6) k/uL RBC (4.30-5.90) m/uL Hgb (13.0-17.5) gm/dL Hct (39.0-53.0) % MCV (80.0-100.0) fL MCH (25.0-35.0) pg MCHC (31.0-37.0) g/dL RDW (11.5-15.5) % Plt Count (150-450) k/uL MPV Neutrophils % % Lymphocytes % % Monocytes % % Eosinophils % % Basophils % % Neutrophils # (1.3-7.7) k/uL Lymphocytes # (1.0-4.8) k/uL Monocytes # (0-1.0) k/uL Eosinophils # (0-0.7) k/uL Basophils # (0-0.2) k/uL Sodium 138 (137-145) mmol/L Potassium 3.8 (3.5-5.1) mmol/L Chloride 107 (98-107) mmol/L Carbon Dioxide 25 (22-30) mmol/L Anion Gap 6 mmol/L BUN 16 (9-20) mg/dL Creatinine 0.68 (0.66-1.25) mg/dL Est GFR (CKD-EPI)AfAm >90 (>60 ml/min/1.73 sqM) Est GFR (CKD-EPI)NonAf >90 (>60 ml/min/1.73 sqM) Glucose 117 H (74-99) mg/dL Plasma Lactic Acid Wilner 1.8 (0.7-2.0) mmol/L Calcium 8.9 (8.4-10.2) mg/dL Magnesium 1.9 (1.6-2.3) mg/dL Total Bilirubin 0.7 (0.2-1.3) mg/dL AST 29 (17-59) U/L ALT 26 (4-49) U/L Alkaline Phosphatase 100 (38-126) U/L Troponin I <0.012 (0.000-0.034) ng/mL Total Protein 6.1 L (6.3-8.2) g/dL Albumin 3.5 (3.5-5.0) g/dL Urine Color Urine Appearance (Clear) Urine pH (5.0-8.0) Ur Specific Karval (1.001-1.035) Urine Protein (Negative) Urine Glucose (UA) (Negative) Urine Ketones (Negative) Urine Blood (Negative) Urine Nitrite (Negative) Urine Bilirubin (Negative) Urine Urobilinogen (<2.0) mg/dL Ur Leukocyte Esterase (Negative) 06/11/23 06/11/23 Range/Units 08:25 09:00 WBC 5.4 (3.8-10.6) k/uL RBC 4.49 (4.30-5.90) m/uL Hgb 14.4 (13.0-17.5) gm/dL Hct 44.4 (39.0-53.0) % MCV 98.8 (80.0-100.0) fL MCH 32.0 (25.0-35.0) pg MCHC 32.4 (31.0-37.0) g/dL RDW 12.6 (11.5-15.5) % Plt Count 206 (150-450) k/uL MPV 8.7 Neutrophils % 62 % Lymphocytes % 26 % Monocytes % 8 % Eosinophils % 2 % Basophils % 1 % Neutrophils # 3.3 (1.3-7.7) k/uL Lymphocytes # 1.4 (1.0-4.8) k/uL Monocytes # 0.4 (0-1.0) k/uL Eosinophils # 0.1 (0-0.7) k/uL Basophils # 0.1 (0-0.2) k/uL Sodium (137-145) mmol/L Potassium (3.5-5.1) mmol/L Chloride (98-107) mmol/L Carbon Dioxide (22-30) mmol/L Anion Gap mmol/L BUN (9-20) mg/dL Creatinine (0.66-1.25) mg/dL Est GFR (CKD-EPI)AfAm (>60 ml/min/1.73 sqM) Est GFR (CKD-EPI)NonAf (>60 ml/min/1.73 sqM) Glucose (74-99) mg/dL Plasma Lactic Acid Wilner (0.7-2.0) mmol/L Calcium (8.4-10.2) mg/dL Magnesium (1.6-2.3) mg/dL Total Bilirubin (0.2-1.3) mg/dL AST (17-59) U/L ALT (4-49) U/L Alkaline Phosphatase (38-126) U/L Troponin I (0.000-0.034) ng/mL Total Protein (6.3-8.2) g/dL Albumin (3.5-5.0) g/dL Urine Color Colorless Urine Appearance Clear (Clear) Urine pH 6.5 (5.0-8.0) Ur Specific Karval 1.008 (1.001-1.035) Urine Protein Negative (Negative) Urine Glucose (UA) Negative (Negative) Urine Ketones Negative (Negative) Urine Blood Negative (Negative) Urine Nitrite Negative (Negative) Urine Bilirubin Negative (Negative) Urine Urobilinogen <2.0 (<2.0) mg/dL Ur Leukocyte Esterase Negative (Negative) Disposition Clinical Impression: Dehydration, Lightheaded Disposition: HOME SELF-CARE Condition: Good Instructions (If sedation given, give patient instructions): Lightheadedness (ED) Additional Instructions: Increase fluid intake Is patient prescribed a controlled substance at d/c from ED?: No Referrals: Yousuf Nolasco MD [STAFF PHYSICIAN] - 1-2 days Time of Disposition: 10:06
[2023-06-11 08:46] LABS: ALT 26 U/L (4-49); AST 29 U/L (17-59); African American GFR (CKD) >90 (>60 ml/min/1.73 sqM); Albumin 3.5 g/dL (3.5-5.0); Alkaline Phosphatase 100 U/L (38-126); Anion Gap 6 mmol/L; Blood Urea Nitrogen 16 mg/dL (9-20); Calcium 8.9 mg/dL (8.4-10.2); Carbon Dioxide 25 mmol/L (22-30); Chloride 107 mmol/L (98-107); Glucose 117 mg/dL (74-99); Magnesium 1.9 mg/dL (1.6-2.3); Non-African American GFR(CKD) >90 (>60 ml/min/1.73 sqM); Potassium 3.8 mmol/L (3.5-5.1); Sodium 138 mmol/L (137-145); Total Bilirubin 0.7 mg/dL (0.2-1.3); Total Protein 6.1 g/dL (6.3-8.2)
[2023-06-11 08:56] VITALS: PULSE 82; TEMP 97.7
[2023-06-11 09:05] LABS: Appearance,Urine Clear (Clear); Bilirubin,Urine Negative (Negative); Blood,Urine Negative (Negative); Color,Urine Colorless; Glucose,Urine (UA) Negative (Negative); Ketones,Urine Negative (Negative); Leukocyte Esterase,Urine Negative (Negative); Nitrite,Urine Negative (Negative); PH, Urine 6.5 (5.0-8.0); Protein,Urine Negative (Negative); Specific Gravity,Urine 1.008 (1.001-1.035); Urobilinogen,Urine <2.0 mg/dL (<2.0)
[2023-06-11 09:45] LABS: Basophils # (A) 0.1 k/uL (0-0.2); Basophils % (A) 1 %; Eosinophils # (A) 0.1 k/uL (0-0.7); Eosinophils % (A) 2 %; HCT 44.4 % (39.0-53.0); HGB 14.4 gm/dL (13.0-17.5); Lymphocytes # (A) 1.4 k/uL (1.0-4.8); Lymphocytes % (A) 26 %; MCHC 32.4 g/dL (31.0-37.0); MCV 98.8 fL (80.0-100.0); Mean Platelet Volume 8.7; Monocytes # (A) 0.4 k/uL (0-1.0); Monocytes % (A) 8 %; Neutrophils # (A) 3.3 k/uL (1.3-7.7); Neutrophils % (A) 62 %; Platelet Count 206 k/uL (150-450); RBC 4.49 m/uL (4.30-5.90); RDW 12.6 % (11.5-15.5); WBC 5.4 k/uL (3.8-10.6)
--- NOTE | 2023-06-11 09:51 | XR ---
EXAMINATION TYPE: XR chest 2V DATE OF EXAM: 06/11/2023 9:38 AM CLINICAL INDICATION:Male, 73 years old with history of Weakness; COMPARISON: Chest radiographs from 06/08/2023 TECHNIQUE: XR chest 2V Frontal and lateral views of the chest. FINDINGS: Lungs/Pleura: There is no evidence of pleural effusion, focal consolidation, or pneumothorax. Pulmonary vascularity: Unremarkable. Heart/mediastinum: Cardiomediastinal silhouette is unremarkable. Left atrial appendage occlusion carlos ce is present. Musculoskeletal: No acute osseous pathology. IMPRESSION: 1. No acute cardiopulmonary disease process. 2. COPD changes.
[2023-06-11 11:09] VITALS: BP 126/84; RESP 18
== END 2023-06-11 10:42 | disposition home or self-care (01) ==
LOC: EC 08:03
DX: E86.0 Dehydration (principal); R42 Dizziness and giddiness; Z95.1 Presence of aortocoronary bypass graft
CPT/HCPCS: 36415; 71046; 80053; 81003; 83605; 83735; 84484; 85025; 93005; 96360; 96361; 99285